=== PATIENT | male | born 1980 | race African-American/Black ===

== ENCOUNTER → 2017-02-27 | Outpatient (CLI) | payer OTHER ==
[~2017-02-27] MED LIST: AMBIEN 10MG10 MG PO; AMOXICILLIN 50500 MG PO; ZOLOFT 25MG25 MG
== END ==
LOC: COL.RAD 10:11
DX: Z02.71 Encounter for disability determination (principal)

== ENCOUNTER → 2017-06-06 | Outpatient (REF) | LOC: ZLAB.WCH 08:47 | DX: Z01.89 Encounter for other specified special examinations (principal) ==